=== PATIENT | male | born 1960 | race Caucasian/White ===

== ENCOUNTER 2016-10-01 09:14 | Emergency (ER) | payer MEDICAID ==
[~2016-10-01] VITALS: Ht 170.2 cm; Wt 61.3 kg
[2016-10-01 09:17] VITALS: BP 142/83
[2016-10-01] MEDS ORDERED: DIPHENHYDRAMINE 25 MG CAPSULE PO ONE (10:00)
[2016-10-01] MEDS ORDERED: DIPHENHYDRAMINE 25 MG CAPSULE ONE (10:06)
== END 2016-10-01 10:40 | disposition home or self-care (01) ==
LOC: ED 10:34
DX: B86 Scabies (principal); B35.6 Tinea cruris; F17.200 Nicotine dependence, unspecified, uncomplicated
CPT/HCPCS: 99283; J7512; Q0163

== ENCOUNTER 2016-10-12 20:36 | Emergency (ER) | payer MEDICAID ==
[~2016-10-12] VITALS: Ht 170.2 cm; Wt 63.8 kg
[2016-10-12] MEDS ORDERED: KETOROLAC 30 MG/1 ML ONE (21:21)
[2016-10-12] MEDS ORDERED: MORPHINE SULFATE 4 MG/ML, 1ML ONE ×2 (21:21→22:20)
[2016-10-12] MEDS: MORPHINE SULFATE 4 MG/ML, 1ML IVPush PRN ×2 (21:23→22:29)
[2016-10-12] MEDS ORDERED: KETOROLAC 30 MG/1 ML IVPush ONE (21:30)
[2016-10-12 21:39] LABS: ASPARTATE AMINO TRANSFERASE 170 U/L (15-37); BLOOD UREA NITROGEN 8 mg/dL (7-18)
[2016-10-12 21:44] LABS: IS PT STATUS REG ER OR PRE ER? YES
[2016-10-12] MEDS ORDERED: SODIUM CHLORIDE 0.9% 1,000ML IVBOLUS ONE (22:00)
[2016-10-12 23:45] VITALS: BP 111/70
== END 2016-10-13 01:32 | disposition home or self-care (01) ==
LOC: ED 21:57
DX: R07.89 Other chest pain (principal); B34.9 Viral infection, unspecified; R94.5 Abnormal results of liver function studies
CPT/HCPCS: 36415; 71020; 76700; 80053; 84484; 85025; 93005; 96361; 96374; 96375; 96376; 99285; J1885; J7030

== ENCOUNTER 2016-11-27 15:59 | Emergency (ER) | payer MEDICAID ==
[~2016-11-27] VITALS: Ht 170.2 cm; Wt 58.2 kg
[2016-11-27 16:01] VITALS: BP 132/69
== END 2016-11-27 17:13 | disposition home or self-care (01) ==
LOC: ED 17:00
DX: L40.0 Psoriasis vulgaris (principal)
CPT/HCPCS: 99283

== ENCOUNTER 2016-11-29 14:40 | Emergency (ER) | payer MEDICAID ==
[~2016-11-29] VITALS: Ht 170.2 cm; Wt 58.1 kg
[2016-11-29 14:42] VITALS: BP 116/76
== END 2016-11-29 16:02 | disposition home or self-care (01) ==
LOC: ED 15:40
DX: L03.114 Cellulitis of left upper limb (principal); L03.113 Cellulitis of right upper limb; L40.8 Other psoriasis; L40.0 Psoriasis vulgaris; B86 Scabies; Z59.0 Homelessness
CPT/HCPCS: 99283

== ENCOUNTER 2016-12-30 14:08 | Emergency (ER) | payer MEDICAID ==
[~2016-12-30] VITALS: Ht 170.2 cm; Wt 62.0 kg
[2016-12-30 14:09] VITALS: BP 117/74
== END 2016-12-30 15:30 | disposition home or self-care (01) ==
LOC: ED 14:45
DX: Z76.0 Encounter for issue of repeat prescription (principal); R21 Rash and other nonspecific skin eruption
CPT/HCPCS: 99283

== ENCOUNTER 2017-04-01 01:00 | Emergency (ER) | payer MEDICAID ==
[~2017-04-01] VITALS: Ht 170.2 cm; Wt 57.2 kg
[2017-04-01 01:02] VITALS: BP 140/82
== END 2017-04-01 03:24 | disposition home or self-care (01) ==
LOC: ED 03:06
DX: J44.0 Chronic obstructive pulmonary disease with (acute) lower respiratory infection (principal); J20.9 Acute bronchitis, unspecified; L40.0 Psoriasis vulgaris; F17.200 Nicotine dependence, unspecified, uncomplicated; L40.9 Psoriasis, unspecified; M19.90 Unspecified osteoarthritis, unspecified site
CPT/HCPCS: 71046; 99284

== ENCOUNTER 2017-05-17 19:59 | Emergency (ER) | payer MEDICAID ==
[~2017-05-17] VITALS: Ht 167.6 cm; Wt 63.3 kg
[2017-05-17 20:01] VITALS: BP 131/74
[2017-05-17] MEDS ORDERED: OXYcodone/APAP 5/325MG TABLET ONE (21:00)
[2017-05-17] MEDS ORDERED: OXYcodone/APAP 5/325MG TABLET PO ONE (21:30)
== END 2017-05-17 22:19 | disposition home or self-care (01) ==
LOC: ED 21:07
DX: S20.211A Contusion of right front wall of thorax, initial encounter (principal); L40.0 Psoriasis vulgaris; J44.9 Chronic obstructive pulmonary disease, unspecified; F17.210 Nicotine dependence, cigarettes, uncomplicated; X58.XXXA Exposure to other specified factors, initial encounter; Y93.89 Activity, other specified; Y92.89 Other specified places as the place of occurrence of the external cause; Y99.8 Other external cause status
CPT/HCPCS: 99284

== ENCOUNTER 2017-07-27 05:51 | Emergency (ER) | payer MEDICAID ==
[~2017-07-27] VITALS: Ht 170.2 cm; Wt 68.3 kg
[2017-07-27 05:54] VITALS: BP 134/87
== END 2017-07-27 06:42 | disposition home or self-care (01) ==
LOC: ED 06:40
DX: L73.9 Follicular disorder, unspecified (principal); J44.9 Chronic obstructive pulmonary disease, unspecified; M19.90 Unspecified osteoarthritis, unspecified site; L40.9 Psoriasis, unspecified
CPT/HCPCS: 99283

== ENCOUNTER 2017-08-30 16:50 | Emergency (ER) | payer MEDICAID ==
[~2017-08-30] VITALS: Ht 170.2 cm; Wt 62.0 kg
[2017-08-30 16:53] VITALS: BP 132/84
[2017-08-30 17:17] LABS: BASOPHILS # (AUTO) 0.04 x10^3/uL (0-0.1); BASOPHILS % (AUTO) 0 % (0-1); EOSINOPHILS # (AUTO) 0.34 x10^3/uL (0-0.4); EOSINOPHILS % (AUTO) 4 % (1-7); LYMPHOCYTES # (AUTO) 1.85 x10^3/uL (1-3.4); LYMPHOCYTES % (AUTO) 19 % (22-44); MD NO; MEAN CORPUSCULAR HEMOGLOBIN 32.4 pg (27.5-34.5); MEAN CORPUSCULAR HGB CONC 32.9 g/dL (33.2-36.2); MEAN CORPUSCULAR VOLUME 98.5 fL (81-97); MEAN PLATELET VOLUME 8.1 fL (7.4-10.4); MONOCYTES # (AUTO) 0.64 x10^3/uL (0.2-0.8); MONOCYTES % (AUTO) 7 % (2-9); NEUTROPHILS # (AUTO) 6.83 x10^3/uL (1.8-6.8); NEUTROPHILS % (AUTO) 70 % (42-75); PLATELET COUNT 266 x10^3/uL (130-400); RED BLOOD COUNT 5.06 x10^6/uL (4.38-5.82); RED CELL DISTRIBUTION WIDTH 13.8 % (9.4-14.8)
[2017-08-30] MEDS ORDERED: CEFAZOLIN 1,000 MG IM ONE (18:00)
[2017-08-30] MEDS ORDERED: IBUPROFEN 200 MG TABLET PO ONE (18:00)
[2017-08-30] MEDS ORDERED: CEFAZOLIN 1,000 MG ONE (18:13)
[2017-08-30] MEDS ORDERED: IBUPROFEN 200 MG TABLET ONE (18:14)
== END 2017-08-30 18:36 | disposition home or self-care (01) ==
LOC: ED 18:30
DX: L03.116 Cellulitis of left lower limb (principal); B35.4 Tinea corporis; B35.3 Tinea pedis; F17.200 Nicotine dependence, unspecified, uncomplicated; J44.9 Chronic obstructive pulmonary disease, unspecified
CPT/HCPCS: 36415; 73610; 85025; 96372; 99285; J0690

== ENCOUNTER 2018-06-18 22:19 | Emergency (ER) | payer MEDICAID ==
[~2018-06-18] VITALS: Ht 170.2 cm; Wt 59.0 kg
[2018-06-18 22:23] VITALS: BP 118/78
== END 2018-06-18 23:01 | disposition home or self-care (01) ==
LOC: ED 22:46
DX: L40.0 Psoriasis vulgaris (principal); M17.0 Bilateral primary osteoarthritis of knee; M25.521 Pain in right elbow; Z72.9 Problem related to lifestyle, unspecified; J44.9 Chronic obstructive pulmonary disease, unspecified; F17.200 Nicotine dependence, unspecified, uncomplicated
CPT/HCPCS: 99283

== ENCOUNTER 2018-06-24 19:36 | Emergency (ER) | payer MEDICAID ==
[~2018-06-24] VITALS: Ht 170.2 cm; Wt 59.7 kg
[2018-06-24 19:39] VITALS: BP 125/82
--- NOTE | 2018-06-24 20:03 | NUR ---
Patient/Caregiver given discharge instructions and they have confirmed that they understand the instructions. Patient ambulatory with steady gait.
== END 2018-06-24 20:04 | disposition home or self-care (01) ==
LOC: ED 19:58
DX: L40.0 Psoriasis vulgaris (principal); F17.200 Nicotine dependence, unspecified, uncomplicated
CPT/HCPCS: 99283

== ENCOUNTER 2018-08-07 22:21 | Emergency (ER) | payer MEDICAID ==
[~2018-08-07] VITALS: Ht 170.2 cm; Wt 57.2 kg
[2018-08-07 22:25] VITALS: BP 114/85
--- NOTE | 2018-08-07 22:26 | NUR ---
PT IN RESTROOM
--- NOTE | 2018-08-07 22:44 | NUR ---
Pt ambulated to room with EDT.
--- NOTE | 2018-08-07 22:55 | NUR ---
Dr. Wilcox at bedside to evaluate pt.
--- NOTE | 2018-08-07 23:19 | NUR ---
Patient/Caregiver given discharge instructions and they have confirmed that they understand the instructions. Patient ambulatory with steady gait.
== END 2018-08-07 23:20 | disposition home or self-care (01) ==
LOC: ED 23:05
DX: R21 Rash and other nonspecific skin eruption (principal); J44.9 Chronic obstructive pulmonary disease, unspecified; Z72.9 Problem related to lifestyle, unspecified
CPT/HCPCS: 99283

== ENCOUNTER 2018-09-12 16:33 | Emergency (ER) | payer MEDICAID ==
[~2018-09-12] VITALS: Ht 170.2 cm; Wt 58.1 kg
--- NOTE | 2018-09-12 16:43 | NUR ---
NO ANSWER WHEN CALLED FOR TRIAGE
[2018-09-12 17:08] VITALS: BP 111/70
== END 2018-09-12 17:55 | disposition home or self-care (01) ==
LOC: ED 17:15
DX: B86 Scabies (principal); L40.0 Psoriasis vulgaris; J44.9 Chronic obstructive pulmonary disease, unspecified; M19.90 Unspecified osteoarthritis, unspecified site; F41.1 Generalized anxiety disorder; Z72.9 Problem related to lifestyle, unspecified; Z59.0 Homelessness; F17.200 Nicotine dependence, unspecified, uncomplicated
CPT/HCPCS: 82962; 99283

== ENCOUNTER 2019-03-18 11:45 | Emergency (ER) | payer MEDICAID ==
[~2019-03-18] VITALS: Ht 170.2 cm; Wt 58.1 kg
[2019-03-18 11:51] VITALS: BP 136/83
[2019-03-18 12:20] LABS: BASOPHILS # (AUTO) 0.05 x10^3/uL (0-0.1); BASOPHILS % (AUTO) 1 % (0-1); EOSINOPHILS # (AUTO) 0.21 x10^3/uL (0-0.4); EOSINOPHILS % (AUTO) 2 % (1-7); LYMPHOCYTES # (AUTO) 2.01 x10^3/uL (1-3.4); LYMPHOCYTES % (AUTO) 19 % (22-44); MD NO; MEAN CORPUSCULAR HEMOGLOBIN 33.2 pg (27.5-34.5); MEAN CORPUSCULAR HGB CONC 33.6 g/dL (33.2-36.2); MEAN CORPUSCULAR VOLUME 98.9 fL (81-97); MEAN PLATELET VOLUME 7.7 fL (7.4-10.4); MONOCYTES % (AUTO) 9 % (2-9); NEUTROPHILS # (AUTO) 7.57 x10^3/uL (1.8-6.8); NEUTROPHILS % (AUTO) 70 % (42-75); PLATELET COUNT 272 x10^3/uL (130-400); RED BLOOD COUNT 4.61 x10^6/uL (4.38-5.82); RED CELL DISTRIBUTION WIDTH 13.2 % (9.4-14.8)
--- NOTE | 2019-03-18 12:23 | NUR ---
SOAP AND WATER CLEANSE TO ABRASIONS. NON-ADHERENT DRESSING APPLIED. WOUND CARE EDUCATION PROVIDED FOR OUT PT.
[2019-03-18 12:36] LABS: ALBUMIN 3.4 g/dL (3.4-5.0); ANION GAP 6 mmol/L (5-15); CALCIUM 8.5 mg/dL (8.5-10.1); CHLORIDE 100 mmol/L (98-107)
[2019-03-18 12:40] LABS: ALANINE AMINOTRANSFERASE 26 U/L (12-78); ALKALINE PHOSPHATASE 89 U/L (45-117); BILIRUBIN,TOTAL 1.1 mg/dL (0.2-1.0); CREATININE 0.93 mg/dL (0.7-1.3); TOTAL PROTEIN 7.5 g/dL (6.4-8.2)
== END 2019-03-18 13:19 | disposition home or self-care (01) ==
LOC: ED 13:08
DX: L03.114 Cellulitis of left upper limb (principal)
CPT/HCPCS: 36415; 80053; 83605; 85025; 99283

== ENCOUNTER 2019-04-17 03:00 | Emergency (ER) | payer MEDICAID ==
[~2019-04-17] VITALS: Ht 170.2 cm; Wt 58.9 kg
[2019-04-17 03:04] VITALS: BP 130/61
[2019-04-17] MEDS ORDERED: MUPIROCIN OINT 2%, 22GM TP STA (03:44)
[2019-04-17] MEDS ORDERED: CEPHALEXIN 500 MG CAPSULE ONE (03:49)
[2019-04-17] MEDS ORDERED: SULFAMETH./TRIMETHOPRIM DS 800MG/160MG TABLET ONE (03:49)
--- NOTE | 2019-04-17 03:55 | NUR ---
PT MEDICATED PER MAY. PT WOUNDS BANDAGED PER PA INSTRUCTIONS. PT VERBALIZES UNDERSTNADING OF NEED FOR OINTMENT APPLICATION AND ANTIBIOTIC THERAPY.
[2019-04-17] MEDS ORDERED: NEOSPORIN OINT. PKT 1 PACKET ONE (03:59)
[2019-04-17] MEDS ORDERED: SULFAMETH./TRIMETHOPRIM DS 800MG/160MG TABLET PO ONE (04:00)
[2019-04-17] MEDS ORDERED: CEPHALEXIN 500 MG CAPSULE PO ONE (04:00)
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
== END 2019-04-17 04:02 | disposition home or self-care (01) ==
LOC: ED 03:50
DX: L03.114 Cellulitis of left upper limb (principal); L01.01 Non-bullous impetigo; J44.0 Chronic obstructive pulmonary disease with (acute) lower respiratory infection; F17.210 Nicotine dependence, cigarettes, uncomplicated
CPT/HCPCS: 99284

== ENCOUNTER 2019-07-09 06:57 | Emergency (ER) | payer MEDICAID ==
[~2019-07-09] VITALS: Ht 170.2 cm; Wt 61.0 kg
--- NOTE | 2019-07-09 07:12 | NUR ---
Zev Jaquez PA-C at bedside for assessment.
[2019-07-09 07:49] LABS: BASOPHILS # (AUTO) 0.06 x10^3/uL (0-0.1); BASOPHILS % (AUTO) 1 % (0-1); EOSINOPHILS # (AUTO) 0.67 x10^3/uL (0-0.4); EOSINOPHILS % (AUTO) 7 % (1-7); LYMPHOCYTES # (AUTO) 1.59 x10^3/uL (1-3.4); LYMPHOCYTES % (AUTO) 17 % (22-44); MD NO; MEAN CORPUSCULAR HEMOGLOBIN 32.8 pg (27.5-34.5); MEAN CORPUSCULAR HGB CONC 33.6 g/dL (33.2-36.2); MEAN CORPUSCULAR VOLUME 97.8 fL (81-97); MEAN PLATELET VOLUME 7.6 fL (7.4-10.4); MONOCYTES # (AUTO) 0.75 x10^3/uL (0.2-0.8); MONOCYTES % (AUTO) 8 % (2-9); NEUTROPHILS # (AUTO) 6.43 x10^3/uL (1.8-6.8); NEUTROPHILS % (AUTO) 68 % (42-75); PLATELET COUNT 272 x10^3/uL (130-400); RED BLOOD COUNT 4.76 x10^6/uL (4.38-5.82); RED CELL DISTRIBUTION WIDTH 14.3 % (9.4-14.8)
[2019-07-09 07:59] LABS: ANION GAP 6 mmol/L (5-15); CALCIUM 8.2 mg/dL (8.5-10.1); CHLORIDE 107 mmol/L (98-107); CREATININE 0.79 mg/dL (0.7-1.3)
[2019-07-09 08:00] LABS: ALBUMIN 3.4 g/dL (3.4-5.0)
[2019-07-09] MEDS ORDERED: NEOSPORIN OINT. PKT 1 PACKET ONE (08:26)
--- NOTE | 2019-07-09 08:35 | NUR ---
Tech at bedside to dress pt's wounds.
--- NOTE | 2019-07-09 08:49 | NUR ---
Pt ok for D/C. Pt verbalized understanding of D/C paperwork. Has all own belongings upon D/C.
[2019-07-09 08:50] VITALS: BP 126/79
== END 2019-07-09 08:52 | disposition home or self-care (01) ==
LOC: ED 07:14
DX: L03.114 Cellulitis of left upper limb (principal); L40.0 Psoriasis vulgaris; J44.9 Chronic obstructive pulmonary disease, unspecified; M19.90 Unspecified osteoarthritis, unspecified site; F17.210 Nicotine dependence, cigarettes, uncomplicated; Z59.0 Homelessness
CPT/HCPCS: 36415; 80048; 82040; 85025; 99284

== ENCOUNTER 2019-07-18 22:48 | Emergency (ER) | payer MEDICAID ==
[~2019-07-18] VITALS: Ht 170.2 cm; Wt 58.1 kg
[2019-07-18 22:50] VITALS: BP 116/79
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
[2019-07-18] MEDS ORDERED: FAMOTIDINE 20 MG TABLET ONE (23:29)
[2019-07-18] MEDS ORDERED: DIPHENHYDRAMINE 25 MG CAPSULE ONE (23:30)
[2019-07-18] MEDS ORDERED: FAMOTIDINE 20 MG TABLET PO ONE (23:30)
[2019-07-18] MEDS ORDERED: DIPHENHYDRAMINE 25 MG CAPSULE PO ONE (23:30)
--- NOTE | 2019-07-18 23:35 | NUR ---
PT MEDICATED PER EMAR. PT TOLERATED WELL.
--- NOTE | 2019-07-19 00:20 | NUR ---
pt request dressing on left arm. pa notified.
--- NOTE | 2019-07-19 00:26 | NUR ---
Patient given discharge instructions and they have confirmed that they understand the instructions.
== END 2019-07-19 00:27 | disposition home or self-care (01) ==
LOC: ED 23:32
DX: L01.01 Non-bullous impetigo (principal); L03.313 Cellulitis of chest wall; L03.113 Cellulitis of right upper limb; L03.114 Cellulitis of left upper limb; L40.0 Psoriasis vulgaris; J44.9 Chronic obstructive pulmonary disease, unspecified
CPT/HCPCS: 99284; J7512; Q0163

== ENCOUNTER 2019-08-27 02:32 | Emergency (ER) | payer MEDICAID ==
[2019-08-27 02:34] VITALS: BP 119/84
[2019-08-27] MEDS ORDERED: NEOSPORIN OINT. PKT 1 PACKET ONE (02:53)
[2019-08-27] MEDS ORDERED: HYDROcodone/APAP 5/325 TABLET PO ONE (03:00)
[2019-08-27] MEDS ORDERED: SULFAMETH./TRIMETHOPRIM DS 800MG/160MG TABLET PO ONE (03:00)
[2019-08-27] MEDS ORDERED: CEPHALEXIN 500 MG CAPSULE PO ONE (03:00)
[2019-08-27] MEDS ORDERED: SULFAMETH./TRIMETHOPRIM DS 800MG/160MG TABLET ONE (03:03)
[2019-08-27] MEDS ORDERED: CEPHALEXIN 500 MG CAPSULE ONE (03:03)
[2019-08-27] MEDS ORDERED: HYDROcodone/APAP 5/325 TABLET ONE (03:03)
== END 2019-08-27 03:31 ==
LOC: ED 03:21
DX: L03.114 Cellulitis of left upper limb (principal); L03.113 Cellulitis of right upper limb; L40.9 Psoriasis, unspecified; J44.9 Chronic obstructive pulmonary disease, unspecified; F17.210 Nicotine dependence, cigarettes, uncomplicated
CPT/HCPCS: 99284; 99406

== ENCOUNTER 2019-09-16 02:44 | Emergency (ER) | payer MEDICAID ==
[~2019-09-16] VITALS: Ht 170.2 cm; Wt 55.7 kg
[2019-09-16] MEDS ORDERED: IBUPROFEN 600 MG TABLET ONE (03:20)
[2019-09-16] MEDS ORDERED: DIAZEPAM 5 MG TABLET ONE (03:20)
[2019-09-16 03:26] LABS: BASOPHILS # (AUTO) 0.05 x10^3/uL (0-0.1); BASOPHILS % (AUTO) 1 % (0-1); EOSINOPHILS # (AUTO) 0.19 x10^3/uL (0-0.4); EOSINOPHILS % (AUTO) 2 % (1-7); LYMPHOCYTES % (AUTO) 23 % (22-44); MD NO; MEAN CORPUSCULAR HEMOGLOBIN 32.2 pg (27.5-34.5); MEAN CORPUSCULAR HGB CONC 33.1 g/dL (33.2-36.2); MEAN CORPUSCULAR VOLUME 97.4 fL (81-97); MEAN PLATELET VOLUME 7.5 fL (7.4-10.4); MONOCYTES # (AUTO) 0.62 x10^3/uL (0.2-0.8); MONOCYTES % (AUTO) 5 % (2-9); NEUTROPHILS # (AUTO) 8.42 x10^3/uL (1.8-6.8); NEUTROPHILS % (AUTO) 70 % (42-75); PLATELET COUNT 400 x10^3/uL (130-400); RED BLOOD COUNT 4.66 x10^6/uL (4.38-5.82); RED CELL DISTRIBUTION WIDTH 13.8 % (9.4-14.8)
[2019-09-16] MEDS ORDERED: DIAZEPAM 5 MG TABLET PO ONE (03:30)
[2019-09-16] MEDS ORDERED: IBUPROFEN 200 MG TABLET PO ONE (03:30)
--- NOTE | 2019-09-16 03:30 | NUR ---
PATIENT GIVEN MEDICATIONS, UPDATED ON PLAN OF CARE. WARM BLANKET GIVEN. NO NOTED FURTHER NEEDS.
[2019-09-16 03:38] LABS: ALANINE AMINOTRANSFERASE 46 U/L (12-78); ALBUMIN 3.2 g/dL (3.4-5.0); ANION GAP 6 mmol/L (5-15); CALCIUM 8.2 mg/dL (8.5-10.1); CHLORIDE 104 mmol/L (98-107); CREATININE 1.01 mg/dL (0.7-1.3)
[2019-09-16 03:40] LABS: ALKALINE PHOSPHATASE 92 U/L (45-117); BILIRUBIN,TOTAL 0.6 mg/dL (0.2-1.0); TOTAL PROTEIN 7.3 g/dL (6.4-8.2)
[2019-09-16 04:39] VITALS: BP 142/82
== END 2019-09-16 05:05 | disposition home or self-care (01) ==
LOC: ED 04:49
DX: L40.0 Psoriasis vulgaris (principal); R25.2 Cramp and spasm; F17.200 Nicotine dependence, unspecified, uncomplicated; J44.9 Chronic obstructive pulmonary disease, unspecified
CPT/HCPCS: 36415; 80053; 83735; 85025; 99283

== ENCOUNTER 2019-09-25 19:42 | Emergency (ER) | payer MEDICAID ==
[~2019-09-25] VITALS: Ht 170.2 cm; Wt 56.2 kg
[2019-09-25 19:50] VITALS: BP 146/92
--- NOTE | 2019-09-25 20:00 | NUR ---
PT CAME IN CO OF BILAT UE REDNESS, ITCHING, PAIN, AND SCARING. ARMS ARE REDDNED AND DRY. PT STATES IT STARTED LAST NIGHT, ALTHOUGH IT LOOKS LIKE IT MAY HAVE STARTED A DAYS PRIOR AT LEAST. PT IS RESTING IN [facility]. AWAITING MD.
[2019-09-25] MEDS ORDERED: DEXAMETHASONE 4 MG TABLET ONE (20:14)
[2019-09-25] MEDS ORDERED: DEXAMETHASONE 4 MG TABLET PO ONE (20:30)
== END 2019-09-25 20:29 | disposition home or self-care (01) ==
LOC: ED 20:00
DX: L03.114 Cellulitis of left upper limb (principal); L40.0 Psoriasis vulgaris; Z72.9 Problem related to lifestyle, unspecified; J44.9 Chronic obstructive pulmonary disease, unspecified; F17.200 Nicotine dependence, unspecified, uncomplicated
CPT/HCPCS: 99283

== ENCOUNTER 2019-10-18 15:42 | Emergency (ER) | payer MEDICAID ==
[~2019-10-18] VITALS: Ht 170.2 cm; Wt 56.3 kg
[2019-10-18] MEDS ORDERED: NEOSPORIN OINT. PKT 1 PACKET ONE (18:04)
[2019-10-18 18:16] VITALS: BP 121/64
== END 2019-10-18 18:12 | disposition home or self-care (01) ==
LOC: ED 18:05
DX: L03.114 Cellulitis of left upper limb (principal); L01.01 Non-bullous impetigo; L40.8 Other psoriasis; L29.9 Pruritus, unspecified; J44.9 Chronic obstructive pulmonary disease, unspecified; F17.200 Nicotine dependence, unspecified, uncomplicated
CPT/HCPCS: 99283

== ENCOUNTER 2019-10-23 00:10 | Emergency (ER) | payer MEDICAID ==
[~2019-10-23] VITALS: Ht 170.2 cm; Wt 54.0 kg
[2019-10-23 00:45] LABS: BASOPHILS # (AUTO) 0.02 x10^3/uL (0-0.1); BASOPHILS % (AUTO) 0 % (0-1); EOSINOPHILS # (AUTO) 0.19 x10^3/uL (0-0.4); EOSINOPHILS % (AUTO) 2 % (1-7); LYMPHOCYTES # (AUTO) 1.78 x10^3/uL (1-3.4); LYMPHOCYTES % (AUTO) 22 % (22-44); MD NO; MEAN CORPUSCULAR HEMOGLOBIN 32.2 pg (27.5-34.5); MEAN CORPUSCULAR HGB CONC 33.5 g/dL (33.2-36.2); MEAN CORPUSCULAR VOLUME 96.1 fL (81-97); MEAN PLATELET VOLUME 7.8 fL (7.4-10.4); MONOCYTES # (AUTO) 0.66 x10^3/uL (0.2-0.8); MONOCYTES % (AUTO) 8 % (2-9); NEUTROPHILS % (AUTO) 68 % (42-75); PLATELET COUNT 307 x10^3/uL (130-400); RED BLOOD COUNT 5.03 x10^6/uL (4.38-5.82); RED CELL DISTRIBUTION WIDTH 14.6 % (9.4-14.8)
[2019-10-23 00:58] LABS: ALANINE AMINOTRANSFERASE 75 U/L (12-78); ALBUMIN 3.5 g/dL (3.4-5.0); ANION GAP 8 mmol/L (5-15); CALCIUM 8.4 mg/dL (8.5-10.1); CHLORIDE 104 mmol/L (98-107); CREATININE 0.96 mg/dL (0.7-1.3)
[2019-10-23 01:02] LABS: ALKALINE PHOSPHATASE 84 U/L (45-117); BILIRUBIN,TOTAL 1.9 mg/dL (0.2-1.0); TOTAL PROTEIN 7.7 g/dL (6.4-8.2); TROPONIN I < 0.015 ng/mL (0.000-0.045)
[2019-10-23 01:10] VITALS: BP 147/87
[2019-10-23] MEDS ORDERED: POTASSIUM CHLORIDE 20 MEQ TAB.ER.PRT ONE (01:22)
[2019-10-23] MEDS ORDERED: POTASSIUM CHLORIDE 20 MEQ TAB.ER.PRT PO ONE (01:30)
== END 2019-10-23 01:46 | disposition home or self-care (01) ==
LOC: ED 01:03
DX: R07.2 Precordial pain (principal); R06.02 Shortness of breath; R53.1 Weakness; I21.9 Acute myocardial infarction, unspecified; J44.9 Chronic obstructive pulmonary disease, unspecified; F17.210 Nicotine dependence, cigarettes, uncomplicated; Z72.9 Problem related to lifestyle, unspecified
CPT/HCPCS: 36415; 71045; 80053; 83880; 84484; 85025; 93005; 99285; 99406

== ENCOUNTER 2020-04-15 08:07 | Emergency (ER) | payer MEDICAID ==
[~2020-04-15] VITALS: Ht 170.2 cm; Wt 58.1 kg
[2020-04-15 09:02] LABS: BASOPHILS % (AUTO) 1 % (0-1); EOSINOPHILS % (AUTO) 3 % (1-7); LYMPHOCYTES % (AUTO) 21 % (22-44); MEAN CORPUSCULAR HEMOGLOBIN 32.8 pg (27.5-34.5); MEAN CORPUSCULAR HGB CONC 33.6 g/dL (33.2-36.2); MEAN PLATELET VOLUME 8.3 fL (7.4-10.4); MONOCYTES % (AUTO) 7 % (2-9); NEUTROPHILS % (AUTO) 69 % (42-75); PLATELET COUNT 262 x10^3/uL (130-400); RED BLOOD COUNT 4.66 x10^6/uL (4.38-5.82); RED CELL DISTRIBUTION WIDTH 13.9 % (9.4-14.8)
[2020-04-15 09:03] LABS: ALANINE AMINOTRANSFERASE 57 U/L (12-78); ALBUMIN 3.8 g/dL (3.4-5.0); ANION GAP 6 mmol/L (5-15); CALCIUM 8.1 mg/dL (8.5-10.1); CHLORIDE 107 mmol/L (98-107); CREATININE 0.91 mg/dL (0.7-1.3)
[2020-04-15 09:04] LABS: MD NO
[2020-04-15 09:05] LABS: ALKALINE PHOSPHATASE 107 U/L (45-117); BILIRUBIN,TOTAL 0.9 mg/dL (0.2-1.0); TOTAL PROTEIN 7.4 g/dL (6.4-8.2)
--- NOTE | 2020-04-15 09:22 | NUR ---
pt presents to ED with c/o bilateral hand numbness intermittent x 7 years. cms intact to bilateral hands. bilateral family practice physician strength equal. pt a&o, resps even and unlabored, nadn. awaiting labs and dispo.
--- NOTE | 2020-04-15 09:55 | NUR ---
pt sleeping, arouses to voice. resps even and unlabored. report given to VI Fisher at bedside.
[2020-04-15 10:18] VITALS: BP 109/62
--- NOTE | 2020-04-15 10:20 | NUR ---
pt dc self ambulatary with steady gait, no distress,
== END 2020-04-15 10:27 | disposition home or self-care (01) ==
LOC: ED 09:32
DX: M79.641 Pain in right hand (principal); M79.642 Pain in left hand; M79.671 Pain in right foot; M79.672 Pain in left foot; J44.9 Chronic obstructive pulmonary disease, unspecified; Z59.0 Homelessness
CPT/HCPCS: 36415; 80053; 85025; 99283

== ENCOUNTER 2020-04-26 14:57 | Emergency (ER) | payer MEDICAID ==
[~2020-04-26] VITALS: Ht 170.2 cm; Wt 55.2 kg
--- NOTE | 2020-04-26 15:03 | NUR ---
car dumper operator: attempted to call pt for triage, no answer in lobby
[2020-04-26 15:10] VITALS: BP 130/76
--- NOTE | 2020-04-26 15:22 | NUR ---
THOMAS PLATT SEEING PT IN ROOM
[2020-04-26 16:06] LABS: BASOPHILS % (AUTO) 1 % (0-1); EOSINOPHILS % (AUTO) 2 % (1-7); LYMPHOCYTES % (AUTO) 19 % (22-44); MEAN CORPUSCULAR HGB CONC 33.7 g/dL (33.2-36.2); MEAN PLATELET VOLUME 8.2 fL (7.4-10.4); MONOCYTES % (AUTO) 6 % (2-9); NEUTROPHILS % (AUTO) 72 % (42-75); PLATELET COUNT 310 x10^3/uL (130-400); RED BLOOD COUNT 5.01 x10^6/uL (4.38-5.82); RED CELL DISTRIBUTION WIDTH 13.9 % (9.4-14.8)
--- NOTE | 2020-04-26 16:07 | NUR ---
PT IN SECURE ROOM, BELONGINGS IN SECURE LOCKER
[2020-04-26 16:08] LABS: MD NO
[2020-04-26 16:13] LABS: ALANINE AMINOTRANSFERASE 82 U/L (12-78); ALBUMIN 4.3 g/dL (3.4-5.0); ANION GAP 6 mmol/L (5-15); CALCIUM 8.6 mg/dL (8.5-10.1); CHLORIDE 103 mmol/L (98-107); CREATININE 1.11 mg/dL (0.7-1.3); SALICYLATE LEVEL < 1.7 mg/dL (2.8-20.0)
[2020-04-26] MEDS ORDERED: OLANZAPINE 5 MG TABLET ONE (16:15)
[2020-04-26 16:23] LABS: ALKALINE PHOSPHATASE 114 U/L (45-117); BILIRUBIN,TOTAL 1.1 mg/dL (0.2-1.0); TOTAL PROTEIN 8.1 g/dL (6.4-8.2)
[2020-04-26] MEDS ORDERED: OLANZAPINE 5 MG TABLET PO SCH (16:30)
== END 2020-04-26 18:52 | disposition other institution (70) ==
LOC: ED 16:53
DX: F32.9 Major depressive disorder, single episode, unspecified (principal); R45.851 Suicidal ideations; J44.9 Chronic obstructive pulmonary disease, unspecified
CPT/HCPCS: 36415; 80053; 80299; 80320; 80329; 84443; 85025; 87426; 99284; G0480

== ENCOUNTER 2020-04-26 18:46 | Inpatient (IN) | payer MEDICAID ==
[~2020-04-26] VITALS: Ht 170.2 cm; Wt 52.2 kg
[2020-04-26] MEDS ORDERED: DOCUSATE 100 MG CAPSULE PO PRN (19:30)
[2020-04-26] MEDS ORDERED: ONDANSETRON ODT 4 MG PO PRN (19:30)
[2020-04-26] MEDS ORDERED: POLYETHYLENE GLYCOL 17 GM PACKET PO PRN (19:30)
[2020-04-26] MEDS ORDERED: BISACODYL 10 MG SUPP PR PRN (19:30)
[2020-04-26] MEDS ORDERED: ACETAMINOPHEN 325 MG TABLET PO PRN (19:30)
[2020-04-26 19:37] VITALS: BP 146/85
[2020-04-27 00:15] VITALS: BP 146/85
[2020-04-27 07:36] VITALS: BP 126/74
[2020-04-27 08:19] LABS: CHOL/HDL RATIO 2.9; FREE T4 (FREE THYROXINE) 1.01 ng/dL (0.76-1.46); LDL/HDL RATIO 1.6 (0.5-3.0)
[2020-04-27 12:43] LABS: MICROSCOPIC INDICATED
[2020-04-27 12:44] LABS: AMPHETAMINE SCREEN, URINE Positive (Negative); BARBITURATE SCREEN, URINE Negative (Negative); BENZODIAZEPINE SCREEN, URINE Negative (Negative); CANNABINOID SCREEN, URINE Negative (Negative); COCAINE SCREEN, URINE Negative (Negative); METHADONE SCREEN, URINE Negative (Negative); OPIATE SCREEN, URINE Negative (Negative)
[2020-04-27] MEDS: OLANZAPINE 5 MG TABLET PO SCH (16:18)
[2020-04-27 19:57] VITALS: BP 111/71
[2020-04-28 07:45] VITALS: BP 94/55
[2020-04-28] MEDS: FLUOXETINE 10 MG CAP PO SCH (08:23)
[2020-04-28] MEDS: OLANZAPINE 5 MG TABLET PO SCH ×3 (08:23→18:10)
[2020-04-28 19:38] VITALS: BP 117/75
[2020-04-29 07:20] VITALS: BP 116/69
[2020-04-29] MEDS: FLUOXETINE 10 MG CAP PO SCH (08:33)
[2020-04-29 19:55] VITALS: BP 130/81
[2020-04-29] MEDS: OLANZAPINE 5 MG TABLET PO SCH (20:37)
[2020-04-30 07:26] VITALS: BP 124/74
[2020-04-30] MEDS: FLUOXETINE 10 MG CAP PO SCH (07:46)
[2020-04-30 19:34] VITALS: BP 108/67
[2020-04-30] MEDS: OLANZAPINE 5 MG TABLET PO SCH (20:17)
[2020-05-01 07:31] VITALS: BP 146/80
[2020-05-01] MEDS: FLUOXETINE 10 MG CAP PO SCH ×3 (07:47→19:57)
[2020-05-01 19:39] VITALS: BP 148/72
[2020-05-01] MEDS: OLANZAPINE 5 MG TABLET PO SCH (19:58)
[2020-05-02 07:40] VITALS: BP 118/69
[2020-05-02] MEDS ORDERED: OLAN5TAB9 PO (14:33)
[2020-05-02] MEDS ORDERED: FLUO10CA15 PO (14:33)
[2020-05-02 19:30] VITALS: BP 100/60
[2020-05-02] MEDS: FLUOXETINE 10 MG CAP PO SCH (20:02)
[2020-05-02] MEDS: OLANZAPINE 5 MG TABLET PO SCH (20:02)
[2020-05-02 20:22] VITALS: BP 119/70
[2020-05-03 07:42] VITALS: BP 128/71
== END 2020-05-03 14:51 | disposition home or self-care (01) | DRG 750 ==
LOC: 3E 19:08
PROVIDERS: ADMIT Psychiatry & Neurology Psychosomatic Medicine; ATTEND Psychiatry & Neurology Psychosomatic Medicine
DX: F25.0 Schizoaffective disorder, bipolar type (principal); J44.9 Chronic obstructive pulmonary disease, unspecified; F17.210 Nicotine dependence, cigarettes, uncomplicated; K59.00 Constipation, unspecified; R45.851 Suicidal ideations; F15.20 Other stimulant dependence, uncomplicated; F11.20 Opioid dependence, uncomplicated; Z79.899 Other long term (current) drug therapy
CPT/HCPCS: 36415; 71045; 80053; 80061; 80299; 80307; 80320; 80329; 81001; 82607; 84439; 84443; 85025; 87086; 87426; 93005; 99284; G0480

== ENCOUNTER 2020-06-09 08:16 | Emergency (ER) | payer MEDICAID ==
[~2020-06-09] VITALS: Ht 165.1 cm; Wt 59.0 kg
[~2020-06-09 08:16] MED LIST: FLUO10CA15 PO; OLAN5TAB9 PO
[2020-06-09 08:25] VITALS: BP 127/76
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
--- NOTE | 2020-06-09 08:50 | NUR ---
pt to imaging
--- NOTE | 2020-06-09 09:29 | NUR ---
Break RN- discharge instructions reviewed
== END 2020-06-09 09:31 | disposition home or self-care (01) ==
LOC: ED 09:20
DX: S20.212A Contusion of left front wall of thorax, initial encounter (principal); S00.12XA Contusion of left eyelid and periocular area, initial encounter; R07.89 Other chest pain; R51.9 Headache, unspecified; J44.9 Chronic obstructive pulmonary disease, unspecified; F17.210 Nicotine dependence, cigarettes, uncomplicated; Y04.8XXA Assault by other bodily force, initial encounter; Y93.89 Activity, other specified; Y92.89 Other specified places as the place of occurrence of the external cause; Y99.8 Other external cause status
CPT/HCPCS: 71046; 99283

== ENCOUNTER 2020-06-20 06:42 | Emergency (ER) | payer MEDICAID ==
[~2020-06-20] VITALS: Ht 170.2 cm; Wt 60.3 kg
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
--- NOTE | 2020-06-20 07:25 | NUR ---
Pt to xray via sendy
[2020-06-20] MEDS ORDERED: ACETAMINOPHEN 500 MG TABLET PO ONE (07:30)
[2020-06-20] MEDS ORDERED: KETOROLAC 30 MG/1 ML IM ONE (07:30)
--- NOTE | 2020-06-20 07:37 | NUR ---
Pt back from CT
[2020-06-20] MEDS ORDERED: KETOROLAC 30 MG/1 ML ONE (07:38)
[2020-06-20] MEDS ORDERED: ACETAMINOPHEN 500 MG TABLET ONE (07:39)
--- NOTE | 2020-06-20 07:52 | NUR ---
Pt medicated per MAY and made aware of need for urine sample
--- NOTE | 2020-06-20 08:50 | NUR ---
Pt resting in bed with eyes closed, this RN attempted to arrouse pt to obtain urine sample, pt would move but no verbal response or eye opening occured.
--- NOTE | 2020-06-20 08:57 | NUR ---
Pt awakened by this RN, opens eyes on comand but closes them again quickly. Pt advised that a urine sample is needed to evaluate him further. Pt provided urinal and encouraged to provide sample as soon as he is able to. Pt verbalizes understanding.
[2020-06-20 09:01] VITALS: BP 115/65
--- NOTE | 2020-06-20 09:32 | NUR ---
Pt assisted to stand at side of bed to attempt to provide urine sample. Pt unable to provide urine sample at this time. Pt able to position self for comfort in bed. Pt provided water to drink.
--- NOTE | 2020-06-20 10:14 | NUR ---
Task RN attempted to cath pt per order. RN was unsuccessful.
--- NOTE | 2020-06-20 10:48 | NUR ---
When pt straight cathed per order a coude cath was used, scant amount blood noted on outside of cath tip when cath removed. ERP made aware.
--- NOTE | 2020-06-20 10:48 | NUR ---
Pt straight cathed per order. Pt tolerated well. Urine sample obtained, walked to lab. Pt continues resting in bed, NADN.
[2020-06-20 10:52] LABS: MICROSCOPIC INDICATED
== END 2020-06-20 11:53 | disposition home or self-care (01) ==
LOC: ED 07:26
DX: S22.42XA Multiple fractures of ribs, left side, initial encounter for closed fracture (principal); J44.9 Chronic obstructive pulmonary disease, unspecified; Y08.89XA Assault by other specified means, initial encounter; Y93.9 Activity, unspecified; Y92.89 Other specified places as the place of occurrence of the external cause; Y99.8 Other external cause status
CPT/HCPCS: 71101; 81001; 96372; 99284; J1885

== ENCOUNTER 2020-07-12 04:56 | Emergency (ER) | payer MEDICAID ==
[~2020-07-12] VITALS: Ht 170.2 cm; Wt 59.9 kg
[2020-07-12] MEDS ORDERED: RISP0.5T24 PO (05:12)
--- NOTE | 2020-07-12 05:18 | NUR ---
Pt presents to the ER for posterior tailbone pain. Pt states he slipped and fell on gravel, denies hitting head, or LOC. Pt also has psoriasis on his arms bilaterally at baseline.
--- NOTE | 2020-07-12 05:20 | NUR ---
Med rec done to best of pt ability.
[2020-07-12] MEDS ORDERED: ACETAMINOPHEN 325 MG TABLET ONE (05:22)
[2020-07-12] MEDS ORDERED: ACETAMINOPHEN 325 MG TABLET PO ONE (05:30)
--- NOTE | 2020-07-12 06:06 | NUR ---
Awaiting xray read. Pt resting in bed, NADN, watching TV.
[2020-07-12 06:27] VITALS: BP 135/78
== END 2020-07-12 06:47 | disposition home or self-care (01) ==
LOC: ED 05:15
DX: S30.0XXA Contusion of lower back and pelvis, initial encounter (principal); L40.9 Psoriasis, unspecified; J44.9 Chronic obstructive pulmonary disease, unspecified; F17.200 Nicotine dependence, unspecified, uncomplicated; W01.0XXA Fall on same level from slipping, tripping and stumbling without subsequent striking against object, initial encounter; Y93.89 Activity, other specified; Y92.89 Other specified places as the place of occurrence of the external cause; Y99.8 Other external cause status
CPT/HCPCS: 72220; 99283

== ENCOUNTER 2020-08-02 02:35 | Emergency (ER) | payer MEDICAID ==
[~2020-08-02] VITALS: Ht 170.2 cm; Wt 58.0 kg
[~2020-08-02 02:35] MED LIST changes: +RISP0.5T24 PO
[2020-08-02 02:40] VITALS: BP 145/91
== END 2020-08-02 03:20 | disposition home or self-care (01) ==
LOC: ED 03:10
DX: L40.0 Psoriasis vulgaris (principal); J44.9 Chronic obstructive pulmonary disease, unspecified; F17.200 Nicotine dependence, unspecified, uncomplicated
CPT/HCPCS: 99283

== ENCOUNTER 2020-08-29 21:33 | Emergency (ER) | payer MEDICAID ==
[~2020-08-29] VITALS: Ht 170.2 cm; Wt 59.8 kg
[2020-08-29 21:44] VITALS: BP 143/88
[2020-08-29 22:16] LABS: BASOPHILS % (AUTO) 0 % (0-1); EOSINOPHILS % (AUTO) 2 % (1-7); LYMPHOCYTES % (AUTO) 18 % (22-44); MEAN CORPUSCULAR HEMOGLOBIN 33.7 pg (27.5-34.5); MEAN CORPUSCULAR HGB CONC 34.3 g/dL (33.2-36.2); MEAN PLATELET VOLUME 8.1 fL (7.4-10.4); MONOCYTES % (AUTO) 6 % (2-9); NEUTROPHILS % (AUTO) 73 % (42-75); PLATELET COUNT 253 x10^3/uL (130-400); RED BLOOD COUNT 5.13 x10^6/uL (4.38-5.82); RED CELL DISTRIBUTION WIDTH 13.7 % (9.4-14.8)
[2020-08-29 22:18] LABS: MD NO
[2020-08-29 22:27] LABS: ANION GAP 6 mmol/L (5-15); CALCIUM 8.8 mg/dL (8.5-10.1); CHLORIDE 105 mmol/L (98-107); CREATININE 1.13 mg/dL (0.7-1.3)
[2020-08-29 22:28] LABS: ALANINE AMINOTRANSFERASE 62 U/L (12-78); ALBUMIN 3.9 g/dL (3.4-5.0)
[2020-08-29 22:30] LABS: ALKALINE PHOSPHATASE 131 U/L (45-117); BILIRUBIN,TOTAL 0.9 mg/dL (0.2-1.0); TOTAL PROTEIN 7.9 g/dL (6.4-8.2)
[2020-08-29] MEDS ORDERED: OLANZAPINE ODT 10MG ONE (22:30)
[2020-08-29] MEDS ORDERED: OLANZAPINE ODT 10MG PO ONE (22:30)
[2020-08-29 22:31] LABS: SALICYLATE LEVEL < 1.7 mg/dL (2.8-20.0)
--- NOTE | 2020-08-29 22:32 | NUR ---
PT FROM TRIAGE TO WALL IN FRONT OF NURSING STATION IN FULL VIEW OF THID NURSE, MEDICATED PER MAR AT THIS TIME
[2020-08-29 23:14] LABS: AMPHETAMINE SCREEN, URINE Positive (Negative); BARBITURATE SCREEN, URINE Negative (Negative); BENZODIAZEPINE SCREEN, URINE Negative (Negative); CANNABINOID SCREEN, URINE Positive (Negative); COCAINE SCREEN, URINE Negative (Negative); METHADONE SCREEN, URINE Negative (Negative); OPIATE SCREEN, URINE Negative (Negative)
--- NOTE | 2020-08-29 23:27 | NUR ---
THROUGHPUT: TELEPSYCH PAGED
== END 2020-08-30 01:18 | disposition home or self-care (01) ==
LOC: MERGE 21:33 → ED 21:34
DX: F32.0 Major depressive disorder, single episode, mild (principal); F15.151 Other stimulant abuse with stimulant-induced psychotic disorder with hallucinations; Z72.9 Problem related to lifestyle, unspecified; J44.9 Chronic obstructive pulmonary disease, unspecified; F17.210 Nicotine dependence, cigarettes, uncomplicated
CPT/HCPCS: 36415; 80053; 80299; 80307; 80320; 80329; 85025; 99406; G0480

== ENCOUNTER 2020-10-01 21:01 | Emergency (ER) | payer MEDICAID ==
[~2020-10-01] VITALS: Ht 162.6 cm; Wt 58.8 kg
[2020-10-01 21:05] VITALS: BP 124/78
== END 2020-10-01 21:35 | disposition home or self-care (01) ==
LOC: ED 21:32
DX: L40.0 Psoriasis vulgaris (principal); J44.9 Chronic obstructive pulmonary disease, unspecified
CPT/HCPCS: 99283

== ENCOUNTER 2020-12-05 19:55 | Emergency (ER) | payer MEDICAID ==
[~2020-12-05 19:55] MED LIST changes: +OLAN5TAB69 PO; -OLAN5TAB9 PO
--- NOTE | 2020-12-05 21:13 | NUR ---
CALLED PT X2, NO ANSWER.
--- NOTE | 2020-12-05 21:35 | NUR ---
called pt x3, no answer.
--- NOTE | 2020-12-05 21:52 | NUR ---
pt called x4 now. No answer not in lobby. Presumed pt LWBS, left before triage.
== END 2020-12-05 21:54 | disposition left against medical advice (07) ==
LOC: ED 20:30
DX: M79.601 Pain in right arm (principal); Z53.21 Procedure and treatment not carried out due to patient leaving prior to being seen by health care provider

== ENCOUNTER 2020-12-09 01:15 | Emergency (ER) | payer MEDICAID ==
[~2020-12-09] VITALS: Ht 167.6 cm; Wt 55.7 kg
[2020-12-09 01:21] VITALS: BP 129/88
[2020-12-09 02:21] LABS: BASOPHILS % (AUTO) 1 % (0-1); EOSINOPHILS % (AUTO) 2 % (1-7); LYMPHOCYTES % (AUTO) 17 % (22-44); MEAN CORPUSCULAR HEMOGLOBIN 33.4 pg (27.5-34.5); MEAN CORPUSCULAR HGB CONC 34.2 g/dL (33.2-36.2); MONOCYTES % (AUTO) 9 % (2-9); NEUTROPHILS % (AUTO) 72 % (42-75); PLATELET COUNT 309 x10^3/uL (130-400); RED BLOOD COUNT 4.69 x10^6/uL (4.38-5.82); RED CELL DISTRIBUTION WIDTH 13.2 % (9.4-14.8)
[2020-12-09 02:30] LABS: ALANINE AMINOTRANSFERASE 25 U/L (12-78); ALBUMIN 3.5 g/dL (3.4-5.0); ANION GAP 7 mmol/L (5-15); CALCIUM 8.6 mg/dL (8.5-10.1); CHLORIDE 101 mmol/L (98-107); CREATININE 0.92 mg/dL (0.7-1.3)
[2020-12-09 02:32] LABS: ALKALINE PHOSPHATASE 109 U/L (45-117); BILIRUBIN,TOTAL 1.1 mg/dL (0.2-1.0); TOTAL PROTEIN 8.2 g/dL (6.4-8.2)
--- NOTE | 2020-12-09 04:30 | NUR ---
called in the lobby, no answer.
--- NOTE | 2020-12-09 04:55 | NUR ---
called in the lobby, no answer.
--- NOTE | 2020-12-09 04:55 | NUR ---
called in the lobby, no answer.
== END 2020-12-09 04:59 | disposition left against medical advice (07) ==
LOC: ED 01:30
DX: S51.801A Unspecified open wound of right forearm, initial encounter (principal); X58.XXXA Exposure to other specified factors, initial encounter; Y93.89 Activity, other specified; Y92.89 Other specified places as the place of occurrence of the external cause; Y99.8 Other external cause status
CPT/HCPCS: 36415; 80053; 85025; 99283